=== PATIENT | female | born 1965 | race Caucasian/White ===

== ENCOUNTER 2018-12-22 17:21 | Emergency (ER) | payer BC, OTHER ==
[2018-12-22 17:26] VITALS: BP 163/96; PULSE 67; TEMP 98.1
--- NOTE | 2018-12-22 18:09 | XR ---
EXAMINATION TYPE: XR wrist complete LT DATE OF EXAM: 12/22/2018 COMPARISON: NONE HISTORY: Wrist pain TECHNIQUE: 4 views FINDINGS: I see no fracture nor dislocation. There is 7 mm degenerative cyst in the distal radius. Th ere is some spurring at the first carpometacarpal joint. I see no fracture. IMPRESSION: No acute bony abnormality. Osteoarthritic changes. There is mild soft tissue swelling arlene und the carpus.
[2018-12-22] MEDS ORDERED: KETOROLAC 30 MG/ML 1 ML VIAL IM STA (18:34)
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
[2018-12-22] MEDS ORDERED: Acetaminophen-Codeine 300-30mg TAB PO STA (19:21)
--- NOTE | 2018-12-22 19:39 | ED ---
General Adult HPI - General Chief complaint: Extremity Injury, Upper Stated complaint: LEFT HAND INJURY Source: patient, RN notes reviewed Mode of arrival: ambulatory Limitations: no limitations - History of Present Illness Initial comments: 53-year-old female with a past medical history of hypertension, emphysema presents to the emergency department for a chief complaint of left hand injury. Patient was washing her dog and getting him into the bathtub when he jumped and then her hand backwards. States she has pain in the top part of her hand. States it is painful to move her middle finger. States it is swollen as well. Patient has not tried anything for pain. Patient does states she has been icing it. Denies any other injuries.Patient has no other complaints at this time including shortness of breath, chest pain, abdominal pain, nausea or vomiting, headache, or visual changes. - Related Data Home Medications Medication Instructions Recorded Confirmed FLUoxetine HCL [PROzac] 20 mg PO DAILY 11/23/14 05/05/15 Previous Rx's Medication Instructions Recorded Cephalexin [Keflex] 500 mg PO Q6HR #20 cap 05/05/15 Famotidine [Pepcid] 20 mg PO DAILY PRN #5 tablet 05/05/15 predniSONE 50 mg PO DAILY #3 tab 05/05/15 Allergies Allergy/AdvReac Type Severity Reaction Status Date / Time No Known Allergies Allergy Verified 12/22/18 17:26 Review of Systems ROS Statement: Those systems with pertinent positive or pertinent negative responses have been documented in the HPI. ROS Other: All systems not noted in ROS Statement are negative. Past Medical History Past Medical History: Hypertension Additional Past Medical History / Comment(s): emphsema History of Any Multi-Drug Resistant Organisms: None Reported Past Surgical History: Tubal Ligation Past Psychological History: No Psychological Hx Reported Smoking Status: Current every day smoker Past Alcohol Use History: Occasional Past Drug Use History: None Reported General Exam Limitations: no limitations General appearance: alert, in no apparent distress Head exam: Present: atraumatic, normocephalic, normal inspection Eye exam: Present: normal appearance, PERRL, EOMI. Absent: scleral icterus, conjunctival injection, periorbital swelling ENT exam: Present: normal exam, mucous membranes moist Neck exam: Present: normal inspection, full ROM. Absent: tenderness, meningismus, lymphadenopathy Respiratory exam: Present: normal lung sounds bilaterally. Absent: respiratory distress, wheezes, rales, rhonchi, stridor Cardiovascular Exam: Present: regular rate, normal rhythm, normal heart sounds. Absent: systolic murmur, diastolic murmur, rubs, gallop, clicks Extremities exam: Present: tenderness (Tenderness is noted to the second third and fourth metacarpal heads. No wrist tenderness. No tenderness in the distal fingers.), normal capillary refill (Capillary refill less than 2 seconds, radial pulse 2+ and left upper extremity.), joint swelling (Mild edema and ecchymosis noted to the dorsal aspect of the left second third and fourth metacarpal heads), other (Sensation intact left upper extremity.). Absent: full ROM (Patient has some limited range of motion in the second and fourth digits however flexor and extensor mechanisms are intact.) Course Vital Signs 12/22/18 17:23 Temperature 98.1 F Pulse Rate 67 Respiratory 20 Rate Blood Pressure 163/96 O2 Sat by Pulse 99 Oximetry Procedures - Orthopedic Splinting/Casting Injury #1 Side: left Upper Extremity Injury Location: short arm Upper Extremity Immobilizer: volar splint Medical Decision Making - Medical Decision Making 53-year-old female presents to the emergency department for a chief of left hand injury. Patient's dog fell on her hand and bent it afterwards yesterday. On exam she has tenderness over the second third and fourth metacarpal heads with some edema and ecchymosis. Neurovascular status intact. X-ray reveals a small 4 mm nondisplaced chip fracture of the base of the proximal phalanx of the middle finger. This was splinted. Patient was given Toradol and Tylenol 3. Recommended following up with orthopedics. Recommend returning if she has any worsening symptoms. Discussed rice therapy. Disposition Clinical Impression: Finger fracture, left Disposition: HOME SELF-CARE Condition: Good Instructions (If sedation given, give patient instructions): Finger Fracture (ED) Additional Instructions: Please take Motrin and Tylenol for pain. If pain is severe take Tylenol 3 but do not operate or drive machinery while taking this. Rest ice and elevate the left hand. Keep splint in place and keep it dry. Follow-up with orthopedics on Tuesday. Return here to the emergency department if you have any worsening symptoms. Is patient prescribed a controlled substance at d/c from ED?: No Referrals: Davis Mckeon DO [Doctor of Osteopathic Medicine] - 1-2 days Time of Disposition: 19:38
[2018-12-22 20:09] VITALS: RESP 17
== END 2018-12-22 20:02 | disposition home or self-care (01) ==
LOC: EC 17:21
DX: S62.613A Displaced fracture of proximal phalanx of left middle finger, initial encounter for closed fracture (principal); F17.200 Nicotine dependence, unspecified, uncomplicated; Z79.899 Other long term (current) drug therapy; W54.8XXA Other contact with dog, initial encounter
CPT/HCPCS: 73110; 73130; 99283; 29125; 96372; J1885

== ENCOUNTER 2019-01-09 12:27 | Emergency (ER) | payer BC, OTHER ==
[2019-01-09 12:38] VITALS: BP 115/77; PULSE 66; RESP 16; TEMP 97.8
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
--- NOTE | 2019-01-09 13:51 | XR ---
EXAMINATION TYPE: XR KUB DATE OF EXAM: 01/09/2019 COMPARISON: NONE HISTORY: Pain TECHNIQUE: One view abdominal series FINDINGS: The osseous structures are intact. The bowel gas pattern is nonspecific. Apparent elevation of the r ight hemidiaphragm. Arthropathy and hypertrophic change involving the hip joint correlate for femoral acetabular impingement. Osteitis pubis condensans. Calcification in the right pelvis likely vascular . Retained fecal debris throughout the colon. Subsegmental changes at the left lung base suggestive o f atelectasis. Possible fracture involving the right 12th, 11th and 10th ribs. IMPRESSION: 1. Nonspecific abdomen. Extensive retained fecal debris throughout the colon correlate for constipat ion. 2. Correlate for previous history of trauma to the right rib cage. Fractures involving the 12th, 11th and 10th ribs suspected posteriorly.
[2019-01-09] MEDS ORDERED: MAGNESIUM HYDROXIDE 2,400 MG/10 ML CUP PO STA (14:04)
[2019-01-09] MEDS ORDERED: ACET/COD 300 MG/30 MG STARTER PACK 6 TAB BTL PO STA (15:06)
== END 2019-01-09 15:25 | disposition home or self-care (01) ==
LOC: EC 12:27
DX: K59.00 Constipation, unspecified (principal); S22.49XA Multiple fractures of ribs, unspecified side, initial encounter for closed fracture; S22.20XA Unspecified fracture of sternum, initial encounter for closed fracture; S09.90XA Unspecified injury of head, initial encounter; F17.200 Nicotine dependence, unspecified, uncomplicated; Z79.891 Long term (current) use of opiate analgesic; V89.2XXA Person injured in unspecified motor-vehicle accident, traffic, initial encounter; Y92.410 Unspecified street and highway as the place of occurrence of the external cause
CPT/HCPCS: 74018; 99284

== ENCOUNTER 2020-01-16 17:52 | Emergency (ER) | payer OTHER ==
[2020-01-16 17:58] VITALS: RESP 16
[2020-01-16] MEDS ORDERED: KETOROLAC 15 MG/ML 1 ML VIAL IM STA (18:49)
--- NOTE | 2020-01-16 19:17 | ED ---
General Adult HPI - General Chief complaint: Fall Stated complaint: rt foot injury Time Seen by Provider: 01/16/20 18:16 Source: patient, RN notes reviewed Mode of arrival: wheelchair Limitations: no limitations - History of Present Illness Initial comments: 54-year-old female presents to the emergency room for right foot pain. Patient reports that she was stepping down the last step and accidentally rolled her ankle on the lateral aspect of the right foot. Patient states s she is able to ambulate on his however needs a cane to do so. Patient denies hitting her head or falling. Denies any other injuries.Patient has no other complaints at this time including shortness of breath, chest pain, abdominal pain, nausea or vomiting, headache, or visual changes. - Related Data Home Medications Medication Instructions Recorded Confirmed Docusate [Colace] 100 mg PO DAILY PRN 01/09/19 01/09/19 Ibuprofen [Motrin] 600 mg PO Q6HR PRN 01/09/19 01/09/19 Allergies Allergy/AdvReac Type Severity Reaction Status Date / Time No Known Allergies Allergy Verified 01/16/20 17:56 Review of Systems ROS Statement: Those systems with pertinent positive or pertinent negative responses have been documented in the HPI. ROS Other: All systems not noted in ROS Statement are negative. Past Medical History Past Medical History: Hypertension Additional Past Medical History / Comment(s): emphsema History of Any Multi-Drug Resistant Organisms: None Reported Past Surgical History: Tubal Ligation Past Psychological History: No Psychological Hx Reported Smoking Status: Current every day smoker Past Alcohol Use History: Occasional Past Drug Use History: None Reported General Exam Limitations: no limitations General appearance: alert, in no apparent distress Head exam: Present: atraumatic, normocephalic, normal inspection Eye exam: Present: normal appearance, PERRL, EOMI. Absent: scleral icterus, conjunctival injection, periorbital swelling ENT exam: Present: normal exam, mucous membranes moist Neck exam: Present: normal inspection, full ROM. Absent: tenderness, meningismus, lymphadenopathy Respiratory exam: Present: normal lung sounds bilaterally. Absent: respiratory distress, wheezes, rales, rhonchi, stridor Cardiovascular Exam: Present: regular rate, normal rhythm, normal heart sounds. Absent: systolic murmur, diastolic murmur, rubs, gallop, clicks GI/Abdominal exam: Present: soft, normal bowel sounds. Absent: distended, tenderness, guarding, rebound, rigid Extremities exam: Present: normal capillary refill (Capillary refill less than 2 seconds, DP pulse 2+ in the right lower extremity.), other (Sensation intact right lower extremity). Absent: full ROM (Patient is able to plantar and dorsiflex the right ankle however does have some pain with doing so. Able to move all toes.), tenderness (Tenderness to the navicular of the right foot as well as the lateral malleolus of the right ankle. No fifth metatarsal ten derness. ), pedal edema, joint swelling (Patient does have edema noted to the lateral malleolus and lateral right foot.), calf tenderness Course Vital Signs 01/16/20 01/16/20 17:56 20:17 Temperature 98.7 F 98.5 F Pulse Rate 91 68 Respiratory 16 16 Rate Blood Pressure 154/82 107/79 O2 Sat by Pulse 99 99 Oximetry Procedures - Orthopedic Splinting/Casting Injury #1 Side: right Lower Extremity Injury Location: short leg Lower Extremity Immobilizer: posterior splint Other Orthopedic Equipment: crutches, cane Additional Comments: Neurovascular status intact after splint applied. Medical Decision Making - Medical Decision Making X-ray of the right foot and ankle shows no radiographically apparent fracture or dislocation. There is soft tissue swelling. Follow up as indicated. Patient was splinted in a posterior OCL given concern for soft tissue injury versus occult fracture. Patient does have crutches at home and is currently using a cane. Patient was given referral to orthopedics. Patient will return here for any worsening symptoms. Disposition Clinical Impression: Foot pain Disposition: HOME SELF-CARE Condition: Good Instructions (If sedation given, give patient instructions): Foot Contusion (ED) Additional Instructions: Please take Motrin and Tylenol for pain. Please rest ice and elevate the foot. Follow-up with orthopedics by calling tomorrow for the earliest appointment. Return here to the emergency room should you have any worsening symptoms. Otherwise keep splint dry and in place. Is patient prescribed a controlled substance at d/c from ED?: No Referrals: Christoph Hull MD [STAFF PHYSICIAN] - 1-2 days Time of Disposition: 20:26
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
[2020-01-16 20:17] VITALS: BP 107/79; PULSE 68; TEMP 98.5
== END 2020-01-16 20:30 | disposition home or self-care (01) ==
LOC: EC 17:52
DX: M79.671 Pain in right foot (principal); M79.89 Other specified soft tissue disorders; F17.200 Nicotine dependence, unspecified, uncomplicated
CPT/HCPCS: 73610; 73630; 99283; 29515; 96372; J1885

== ENCOUNTER → 2021-08-20 | Outpatient (CLI) | payer OTHER ==
--- NOTE | 2021-08-20 22:19 | US ---
EXAMINATION TYPE: US abdomen limited DATE OF EXAM: 08/20/2021 COMPARISON: NONE CLINICAL HISTORY: pain. Pain. EXAM MEASUREMENTS: Liver Length: 13.9 cm Gallbladder Wall: 0.17 cm CBD: 0.44 cm Right Kidney: 10.1 x 4.8 x 3.9 cm Pancreas: Very limited due to gas. Liver: Appears coarse. Hyperechoic area seen: 1.7 x 1.8 x 1.1 cm. Gallbladder: Hyperechoic area seen that appears to be attached to the gallbladder wall: 0.2 x 0.3 x 0.2 cm. Area did not appear to be mobile. Evidence for sonographic Kessler's sign: Patient feels pain throughout the RUQ. CBD: Portions seen appear wnl Right Kidney: No hydronephrosis or masses seen. Limited due to gas. Visualized portion of pancreas shows no worrisome mass or ductal dilatation. Portions are obscured by overlying bowel gas. IVC is seen near the hepatic dome. There is overall heterogeneously hyperechoic suggesting mild diffuse fatty infiltration. Within the liver there is a 1.7 x 1.1 x 1.8 cm hypoechoi c peripheral lesion left hepatic lobe favoring small hemangioma. No intrahepatic ductal dilatation is seen. Gallbladder seen with incidental 2 mm nonshadowing nonmobile polyp. No shadowing mobile gallst ones. No abnormal wall thickening or pericholecystic fluid. No right-sided hydronephrosis. IMPRESSION: No shadowing mobile gallstones or ultrasound evidence for acute cholecystitis. A 1.8 cm h yperechoic liver lesion favors a benign hemangioma.
== END | disposition home or self-care (01) ==
LOC: RADUSWWP 18:15
PROVIDERS: ATTEND Family Medicine
DX: R10.13 Epigastric pain (principal)
CPT/HCPCS: 76705

== ENCOUNTER → 2022-01-16 | Outpatient (CLI) | payer OTHER ==
--- NOTE | 2022-01-17 10:20 | MR ---
EXAMINATION TYPE: MR abdomen wo/w con DATE OF EXAM: 01/16/2022 COMPARISON: Ultrasound abdomen limited August 20, 2021 HISTORY: LIVER DISEASE, UNSPECIFIED. Recent abnormal ultrasound. CONTRAST: Standard multiplanar, multisequence MRI departmental protocol images were obtained without contrast a nd with 5 mL intravenous Gadavist gadolinium contrast. Imaging performed of the abdomen focusing on the liver. FINDINGS: The exam is suboptimal as patient has difficulty holding breath. Liver: Liver size remains normal. Gallbladder somewhat contracted in appearance. Hyperechoic area on ultrasound not definitively seen on MRI but likely corresponds to focal fatty infiltration near the i nterlobar fissure anterior left hepatic lobe axial image 45 on in and out of phase imaging. No concer edmund solid or cystic intrahepatic mass is present. No biliary dilatation is noted. Other: Patient has little intra-abdominal fat. Spleen, pancreas, both adrenal glands appear within no rmal limits. No concerning renal mass or hydronephrosis seen bilaterally. No suspicious bowel dilatat ion. No AAA. Osseous structures are intact. IMPRESSION: No concerning focal intrahepatic masses. Area of concern in the liver on recent ultrasoun d favors focal fatty infiltration with volume averaging from the adjacent intralobar fissure on ultra sound making it appear more prominent.
== END | disposition home or self-care (01) ==
LOC: RADMRIMAIN 11:40
PROVIDERS: ATTEND Physician Assistant Medical
DX: K76.0 Fatty (change of) liver, not elsewhere classified (principal)
CPT/HCPCS: 74183; A9585

== ENCOUNTER 2022-03-11 11:59 | Inpatient (IN) | payer MEDICAID, OTHER ==
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
[2022-03-11] MEDS ORDERED: cloNIDine HCL 0.2 MG TAB PO STA (12:32)
[2022-03-11 13:03] LABS: Amphetamine Screen,Urine Not Detected (NotDetected); Barbiturate Screen,Urine Not Detected (NotDetected); Benzodiazepines Screen,Urine Not Detected (NotDetected); Cocaine Screen,Urine Not Detected (NotDetected); Methadone Screen, Urine Not Detected (NotDetected); Opiate Screen,Urine Not Detected (NotDetected); Oxycodone Screen, Urine Not Detected (NotDetected); Phencyclidine Screen,Urine Not Detected (NotDetected); Tricyclic Antidepressant,Urine Not Detected (NotDetected); Urn Cannabinoid Scrn Not Detected (NotDetected)
--- NOTE | 2022-03-11 18:53 | ED ---
Medical Decision Making - Medical Decision Making Patient was evaluated by the psychiatric service and will be admitted for inpatient evaluation treatment of acute psychosis I did fill out a clinical certification. - Lab Data Lab Results 03/11/22 Range/Units 12:40 Urine Opiates Screen Not Detected (NotDetected) Ur Oxycodone Screen Not Detected (NotDetected) Urine Methadone Screen Not Detected (NotDetected) Ur Propoxyphene Screen Not Detected (NotDetected) Ur Barbiturates Screen Not Detected (NotDetected) U Tricyclic Antidepress Not Detected (NotDetected) Ur Phencyclidine Scrn Not Detected (NotDetected) Ur Amphetamines Screen Not Detected (NotDetected) U Methamphetamines Scrn Not Detected (NotDetected) U Benzodiazepines Scrn Not Detected (NotDetected) Urine Cocaine Screen Not Detected (NotDetected) U Marijuana (THC) Screen Not Detected (NotDetected) Disposition Clinical Impression: Adjustment reaction of adult life, Acute psychosis Disposition: TRANSFER TO PSYCH HOSP/UNIT Condition: Stable Additional Instructions: Please return to the Emergency Department if symptoms worsen or any other concerns. Referrals: Kwaku Hebert MD [Primary Care Provider] - 1-2 days Decision Date: 03/11/22 Decision Time: 18:15
[2022-03-11] MEDS ORDERED: NICOTINE 21MG/24HR PATCH TRANSDERM STA (21:05)
[2022-03-11] MEDS ORDERED: HALOPERIDOL LACTATE 5 MG/ML 1 ML VIAL IM PRN (21:24)
[2022-03-11] MEDS ORDERED: MAG HYDROX/AL HYDROX/SIMETH 355 ML BOTTLE PO PRN (21:24)
[2022-03-11] MEDS ORDERED: MAGNESIUM HYDROXIDE 2,400 MG/10 ML CUP PO PRN (21:24)
[2022-03-11] MEDS ORDERED: ACETAMINOPHEN TAB 325 MG TAB PO PRN (21:24)
[2022-03-11] MEDS ORDERED: LORazepam 2 MG/ML INJ IM PRN (21:27)
[2022-03-11] MEDS ORDERED: haloperidoL 5 MG TAB PO PRN (21:30)
[2022-03-11] MEDS ORDERED: LORazepam 1 MG TAB PO SCH (22:00)
[2022-03-11] MEDS ORDERED: haloperidoL 5 MG TAB PO SCH (22:00)
[2022-03-11] MEDS: LORazepam 1 MG TAB PO PRN (22:45)
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
[2022-03-12 07:54] LABS: Basophils % (A) 1 %; Eosinophils # (A) 0.1 k/uL (0-0.7); Eosinophils % (A) 3 %; HCT 39.5 % (34.0-46.0); HGB 12.9 gm/dL (11.4-16.0); Lymphocytes # (A) 1.6 k/uL (1.0-4.8); Lymphocytes % (A) 32 %; MCH 30.8 pg (25.0-35.0); MCHC 32.8 g/dL (31.0-37.0); MCV 93.9 fL (80.0-100.0); Mean Platelet Volume 7.1; Monocytes # (A) 0.3 k/uL (0-1.0); Monocytes % (A) 7 %; Neutrophils # (A) 2.9 k/uL (1.3-7.7); Neutrophils % (A) 57 %; Platelet Count 559 k/uL (150-450); RDW 12.5 % (11.5-15.5); WBC 5.1 k/uL (3.8-10.6)
[2022-03-12 08:22] LABS: ALT 19 U/L (4-34); AST 36 U/L (14-36); African American GFR (CKD) 82 (>60 ml/min/1.73 sqM); Albumin 4.3 g/dL (3.5-5.0); Alkaline Phosphatase 52 U/L (38-126); Anion Gap 8 mmol/L; Blood Urea Nitrogen 12 mg/dL (7-17); Calcium 9.3 mg/dL (8.4-10.2); Carbon Dioxide 25 mmol/L (22-30); Chloride 101 mmol/L (98-107); Glucose 145 mg/dL (74-99); Non-African American GFR(CKD) 71 (>60 ml/min/1.73 sqM); Potassium 4.6 mmol/L (3.5-5.1); Sodium 134 mmol/L (137-145); Total Bilirubin 0.5 mg/dL (0.2-1.3); Total Protein 7.2 g/dL (6.3-8.2)
[2022-03-12] MEDS: NICOTINE 21MG/24HR PATCH TRANSDERM SCH (08:59)
[2022-03-12] MEDS: LOSARTAN 50 MG TAB PO SCH (08:59)
[2022-03-12] MEDS ORDERED: FLUoxetine HCL 20 MG CAP PO STA (10:19)
[2022-03-12] MEDS: LORazepam 1 MG TAB PO PRN (10:32)
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
[2022-03-12 14:07] LABS: Chol/HDL Ratio 2.87 Ratio; LDL Cholesterol,Calculated 130.3 mg/dL (0.0-131.0)
[2022-03-12 14:12] VITALS: BMI 18.8
[2022-03-12] MEDS: NICOTINE GUM (POLACRILEX) 2 MG GUM BUCCAL PRN ×2 (15:02→20:42)
[2022-03-12] MEDS: cloNIDine HCL 0.1 MG TAB PO SCH (20:41)
[2022-03-12] MEDS: QUEtiapine 25 MG TAB PO SCH (20:41)
[2022-03-13] MEDS: LOSARTAN 50 MG TAB PO SCH (08:12)
[2022-03-13] MEDS: NICOTINE 21MG/24HR PATCH TRANSDERM SCH (08:12)
[2022-03-13] MEDS: cloNIDine HCL 0.1 MG TAB PO SCH ×2 (08:12→20:33)
[2022-03-13] MEDS: FLUoxetine HCL 10 MG CAP PO SCH (08:12)
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
[2022-03-13] MEDS: ARIPiprazole 10 MG TAB PO SCH (14:45)
[2022-03-13] MEDS: NICOTINE GUM (POLACRILEX) 2 MG GUM BUCCAL PRN ×3 (14:46→20:34)
[2022-03-13] MEDS: QUEtiapine 25 MG TAB PO SCH (20:33)
[2022-03-14] MEDS: NICOTINE 21MG/24HR PATCH TRANSDERM SCH (08:39)
[2022-03-14] MEDS: cloNIDine HCL 0.1 MG TAB PO SCH (08:40)
[2022-03-14] MEDS: ARIPiprazole 10 MG TAB PO SCH (08:40)
[2022-03-14] MEDS: FLUoxetine HCL 10 MG CAP PO SCH (08:40)
[2022-03-14] MEDS: LOSARTAN 50 MG TAB PO SCH (08:40)
[2022-03-14] MEDS: NICOTINE GUM (POLACRILEX) 2 MG GUM BUCCAL PRN ×2 (09:26→12:40)
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
[2022-03-14] MEDS: QUEtiapine 25 MG TAB PO SCH (20:54)
[2022-03-15] MEDS: NICOTINE 21MG/24HR PATCH TRANSDERM SCH (08:13)
[2022-03-15] MEDS: FLUoxetine HCL 10 MG CAP PO SCH (08:13)
[2022-03-15] MEDS: LOSARTAN 50 MG TAB PO SCH (08:13)
[2022-03-15] MEDS: NICOTINE GUM (POLACRILEX) 2 MG GUM BUCCAL PRN ×2 (08:13→15:50)
[2022-03-15] MEDS: LORazepam 1 MG TAB PO PRN (08:14)
[2022-03-15] MEDS ORDERED: ARIPiprazole 15 MG TAB PO SCH (09:00)
--- NOTE | 2022-03-15 11:47 | P.PN ---
Progress Note - Text Progress Note Date: 03/15/22 Interval History: Patient was seen bedside this morning. The patient reports a strong desire to return home to her family. She states this provider that she "lied to everyone." She states that her family does not control her finances and that she loves them and would like to be home with them for the holidays. She is vehemently denying any suicidal or homicidal ideation, intention, and/or plan. When asked why she "lied," patient reports she was not sleeping well and was not getting along with her boyfriend but that she misses them too much now and would like to return home to them and the dogs. She is not reporting any auditory or visual hallucinations. She denies any paranoia. She reports that she feels safe. She denies any medical issues or concerns. She has been adherent with her medication and reports "grogginess" as a side effect. Mental Status Exam: General Appearance: Patient appears to be older than stated age is alert, directable, and attempts to cooperate. Patient appears to have fair hygiene and grooming. Behavior: Patient displays less psychomotor agitation Speech: Patient's speech is less loud but continues to be hyperverbal Mood/Affect: Patient reports their mood is depressed, affect is mood incongruent. Patient presents as euthymic. Suicidality/Homicidality: Patient vehemently denies any suicidal or homicidal ideation today. Perceptions: Patient denies any visual hallucinations and denies any auditory hallucinations Though content/process: There is no evidence of any delusional thought content and thought process is linear and goal-directed. Memory and concentration: AOX3, grossly intact for the purposes of this session. Can spell "WORLD" backwards Judgment and insight: Fair Vital Signs Temp 97.9 F 03/15/22 06:51 Pulse 70 03/15/22 08:11 Resp 16 03/15/22 06:51 BP 121/78 03/15/22 08:11 Pulse Ox 94 L 03/13/22 06:00 FiO2 Assessment Bipolar disorder, most recent episode depressed with mixed features Acute stress disorder vs PTSD Alcohol use disorder, in partial remission Tobacco use disorder History of closed head injury Plan: -Patient is admitted under voluntary status to MHU for stabilization of psychiatric symptoms and safety. Patient signed adult voluntary form and medication consent and is placed in patient's chart. -Medications: - Increase Abilify to 20 mg daily for bipolar disorder/mood lability. - Continue Prozac 30 mg by mouth daily for depression/anxiety/PTSD -Discontinue Seroquel due to dual antipsychotic therapy. -Ativan and Haldol PRN for agitation/aggression -Patient was counselled on substance abuse and desired to cut back on use -Patient was informed of the risks, benefits and side effects of the medication and patient verbally consented to taking the medications. Patient signed med consent form and was placed in chart. -Internal Medicine consult to perform medical evaluation and physical. -NRT - nicotine patch -SW on board for discharge planning. Encourage patient to participate in groups to work on coping skills. Her boyfriend and daughter must be notified of homicidal ideation prior to discharge if patient continues to endorse it.
[2022-03-16 06:56] VITALS: BP 137/54; PULSE 80; RESP 17; TEMP 98.1
[2022-03-16] MEDS: NICOTINE 21MG/24HR PATCH TRANSDERM SCH (09:18)
[2022-03-16] MEDS: LOSARTAN 50 MG TAB PO SCH (09:19)
[2022-03-16] MEDS: FLUoxetine HCL 10 MG CAP PO SCH (09:19)
[2022-03-16] MEDS: NICOTINE GUM (POLACRILEX) 2 MG GUM BUCCAL PRN (09:23)
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
== END 2022-03-16 15:09 | disposition home or self-care (01) | DRG 885 ==
LOC: EC 11:59 → 3MHU 21:23
PROVIDERS: ADMIT Psychiatry & Neurology Psychiatry; ATTEND Psychiatry & Neurology Psychiatry
DX: F31.64 Bipolar disorder, current episode mixed, severe, with psychotic features (principal); R45.851 Suicidal ideations; R45.850 Homicidal ideations; F10.21 Alcohol dependence, in remission; Z20.822 Contact with and (suspected) exposure to COVID-19; F43.10 Post-traumatic stress disorder, unspecified; G47.9 Sleep disorder, unspecified; I10 Essential (primary) hypertension; G47.00 Insomnia, unspecified; F17.210 Nicotine dependence, cigarettes, uncomplicated; Z71.6 Tobacco abuse counseling; Z79.899 Other long term (current) drug therapy; Z87.820 Personal history of traumatic brain injury; Z56.0 Unemployment, unspecified; Z91.411 Personal history of adult psychological abuse; Z91.410 Personal history of adult physical and sexual abuse; Z65.3 Problems related to other legal circumstances; Z63.72 Alcoholism and drug addiction in family; Z81.1 Family history of alcohol abuse and dependence
CPT/HCPCS: 80053; 80061; 80306; 82075; 83036; 84443; 85025; 87635; 99285

== ENCOUNTER → 2022-09-13 | Outpatient (CLI) | payer OTHER ==
[2022-09-13 17:34] LABS: HCT 43.7 % (37.2-46.3); HGB 14.1 d/dL (12.0-15.0); MCH 30.4 pg (27.0-32.0); MCHC 32.3 d/dL (32.0-37.0); MCV 94.2 FL (80.0-97.0); Mean Platelet Volume 8.8 FL (9.5-12.2); NRBC Per 100 WBC 0 X 10*3/uL (0.00-0.01); Platelet Count 481 X 10*3/uL (140-440); RBC 4.64 X 10*6/uL (4.10-5.20); RDW 13.5 % (11.5-14.5); WBC 8.06 X 10*3/uL (4.50-10.00)
[2022-09-14 04:33] LABS: Blood Urea Nitrogen 9.8 mg/dL (9.0-27.0); Carbon Dioxide 22.6 mmol/L (21.6-31.8); Chloride 99 mmol/L (96-109); Potassium 4.9 mmol/L (3.5-5.5); Sodium 138 mmol/L (135-145)
== END | disposition home or self-care (01) ==
LOC: LABPAT 10:13
PROVIDERS: ATTEND Internal Medicine
DX: Z01.812 Encounter for preprocedural laboratory examination (principal); I20.0 Unstable angina
CPT/HCPCS: 36415; 80051; 82565; 84520; 85027

== ENCOUNTER 2022-09-15 09:09 | Day surgery (SDC) | payer OTHER ==
[2022-09-13 14:31] VITALS: BMI 20.5
[~2022-09-15 09:09] MED LIST: ALPRAZolam 0.25 MG TAB PO PRN; ALPRAZolam 0.5 MG TAB PO PRN; ASPIRIN 325 MG TAB PO STA; ATORVASTATIN 80 MG TAB PO STA; HEPARIN SODIUM,PORCINE 10,000 UNIT in SODIUM CHLORIDE 0.9% 1,000 ML IRRIGATION PRN; HEPARIN SODIUM,PORCINE 2,500 UNIT in SODIUM CHLORIDE 0.9% 250 ML IRRIGATION PRN; NITROGLYCERIN SL TABS 0.4 MG TAB SUBLINGUAL PRN; SODIUM CHLORIDE 0.9% 1,000 ML in EMPTY BAG 1 BAG IV SCH
[2022-09-15 09:41] VITALS: RESP 18; TEMP 98.7
[2022-09-15] MEDS ORDERED: fentaNYL (PF) 50 MCG/ML 2 ML AMP ONE (10:25)
[2022-09-15] MEDS ORDERED: HEPARIN SODIUM 1,000 UN/ML (10ML VL) ONE (10:25)
[2022-09-15] MEDS ORDERED: fentaNYL (PF) 50 MCG/ML 2 ML AMP IV ONE (10:36)
[2022-09-15] MEDS ORDERED: MIDAZOLAM 2 MG/2 ML VIAL IV ONE (10:36)
[2022-09-15] MEDS ORDERED: LIDOCAINE 1% INJ 10MG/ML (5 ML VIAL-PF) SQ ONE (10:40)
[2022-09-15] MEDS ORDERED: VERAPAMIL SYRINGE (5 MG/10 ML) INTRAARTER ONE (10:42)
[2022-09-15] MEDS ORDERED: HEPARIN SODIUM 1,000 UN/ML (10ML VL) IV ONE ×2 (10:44→11:00)
[2022-09-15] MEDS ORDERED: CLOPIDOGREL 75 MG TAB ONE (10:57)
[2022-09-15] MEDS ORDERED: CLOPIDOGREL 75 MG TAB PO ONE (10:59)
[2022-09-15] MEDS: NITROGLYCERIN 1000MCG/10ML SYRINGE IV ONE ×2 (11:05→11:19)
[2022-09-15] MEDS ORDERED: IOPAMIDOL-370 100ML BTL INJ ONE (11:28)
[2022-09-15] MEDS ORDERED: IBUPROFEN 800 MG TAB PO PRN (12:21)
[2022-09-15] MEDS ORDERED: ATROPINE SULFATE 0.1 MG/ML 10ML SYRINGE IV PRN (12:23)
[2022-09-15] MEDS ORDERED: ZOLPIDEM 5 MG TAB PO PRN (12:23)
[2022-09-15] MEDS ORDERED: MAG HYDROX/AL HYDROX/SIMETH 30 ML CUP PO PRN (12:23)
[2022-09-15] MEDS ORDERED: RX INFO: IV CONTRAST WAS GIVEN 1 EACH MISC MISCELLANE PRN (12:23)
[2022-09-15] MEDS ORDERED: SODIUM CHLORIDE 0.9% 1,000 ML IV ONE (12:30)
--- NOTE | 2022-09-15 13:01 | P.PRCINT ---
Percutaneous Coronary Int. - Percutaneous Coronary Intervention Percutaneous Coronary Intervention: PROCEDURES PERFORMED: Left heart catheterization, bilateral coronary angiography, ultrasound guided arterial access, iFR RCA, IVUS RCA, PCI RCA 4.0 x 23mm Xience ASHLEY, post dilated with a 5.0 NC balloon INDICATION: Unstable angina over the last 1 month CONSENT:I have discussed the risks, benefits and alternative therapies for the above-mentioned procedure and for both sedation/analgesia as well as necessary blood product administration, if indicated, as they pertain to this patient. The patient has indicated understanding and acceptance of the risks and procedures discussed. PROCEDURE: After the risks, benefits and alternatives of the above mentioned procedure explained in detail with the patient, informed consent was obtained. Patient was taken to the catheterization lab and prepped and draped in usual fashion. Ultrasound guidance was used to assess for arterial access. 1% lidocaine was used to anesthetize the right radial artery. A 6-Cymraes sheath was placed in the right radial artery using modified Seldinger technique and ultrasound guidance. Left coronary angiography was performed with a 5-Cymraes JL 3.5 catheter and right coronary angiography was performed with a 5-Cymraes JR5 catheter in various views. A 5-Cymraes FR5 catheter was inserted into the left ventricle and pressure measurements were obtained. The decision was made to perform iFR of the RCA. Heparin was given for a CT greater than 250. A 6-Cymraes AL 0.75 guide was used to engage the RCA. A 0.014 pressure wire was advanced in the proximal RCA and normalized. It was then advanced 1 Ana distal to the mid RCA lesion. iFR was abnormal at 0.76. Therefore the decision was made to perform PCI. Balloon angioplasty was performed with a 4.0 x 12 mm balloon. Intravascular ultrasound showed reference vessel 4.5-5.0 mm. A 4.0 x 23 mm Xience ASHLEY was placed in the mid RCA. The stent was postdilated with a 5.0 x 12 mm noncompliant balloon. Final angiograms were performed as well as repeat intravascular ultrasound which showed excellent stent apposition. Preintervention there was 70% stenosis with RAVINDER 3 flow and postintervention there was 0% stenosis with RAVINDER 3 flow. The right radial sheath was removed and a TR band was placed with hemostasis achieved. The patient tolerated the procedure well. Patient was transported back to the post catheterization holding area in stable condition. Conscious Sedation: Patient was monitored under the direct supervision of myself for conscious sedation using Versed and fentanyl for a total duration of 43 minutes HEMODYNAMICS: Aorta: 138/76 LV: 134/5, LVEDP 15 SELECTIVE CORONARY ARTERIOGRAPHY: LEFT MAIN: The left main is a large caliber vessel which bifurcates into the LAD and circumflex. There is no significant stenosis. LEFT ANTERIOR DESCENDING CORONARY ARTERY: LAD is a large caliber vessel which wraps around to the apex. There are mild luminal irregularities of the LAD. LEFT CIRCUMFLEX CORONARY ARTERY: Left circumflex is a moderate caliber vessel. There is a mid circumflex 30-40% stenosis. RIGHT CORONARY ARTERY: The right coronary artery is a large caliber vessel which gives off a PDA and PLV branch and is the dominant vessel. There is a mid RCA 70% stenosis and otherwise mild luminal irregularities. FINAL IMPRESSION: 1. CAD as described above including 30-40% mid circumflex and 70% mid RCA stenosis. 2. Abnormal iFR RCA 3. S/p PCI RCA 4.0 x 23mm Xience ASHLEY 4. Mildly elevated left sided filling pressures PLAN: 1. Aggressive risk factor modification per most recent ACC/AHA guidelines. 2. Continue dual antiplatelet with aspirin and Plavix for 12 months. 3. Tobacco cessation
[2022-09-15 15:01] VITALS: BP 150/81; PULSE 51
[2022-09-15] MEDS ORDERED: METOPROLOL TARTRATE 25 MG TAB PO SCH (21:00)
[2022-09-15] MEDS ORDERED: ATORVASTATIN 80 MG TAB PO SCH (21:00)
[2022-09-16] MEDS ORDERED: NON FORMULARY DRUG (Losartan Potassium [Cozaar] 100 MG Tablet) PO SCH (09:00)
[2022-09-16] MEDS ORDERED: FLUoxetine HCL 10 MG CAP PO SCH (09:00)
[2022-09-16] MEDS ORDERED: CLOPIDOGREL 75 MG TAB PO SCH (09:00)
[2022-09-16] MEDS ORDERED: ASPIRIN 81 MG PO SCH (09:00)
== END 2022-09-15 15:54 | disposition home or self-care (01) ==
LOC: CATHCVL 09:09
PROVIDERS: ATTEND Internal Medicine
DX: I20.0 Unstable angina (principal); I77.1 Stricture of artery; Z79.899 Other long term (current) drug therapy
CPT/HCPCS: 92978; 93458; 93799; C9600; C1887; C1769 ×2; C1894; C1725 ×2; C1753; C1874; J2250; J2001; J3010; J1644; Q9967

== ENCOUNTER → 2022-12-07 | Outpatient (CLI) | payer OTHER ==
--- NOTE | 2022-12-08 16:13 | MM ---
Reason for Exam: Screening (asymptomatic). Last mammogram was performed 9 year(s) and 4 month(s) ago. Patient History: Menarche at age 10. First Full-Term at age 21. Postmenopausal. Niece had breast cancer under age 50. Risk Values: Kristy 5 year model risk: 1.2%. NCI Lifetime model risk: 6.7%. Prior Study Comparison: 11/22/1996 Bilateral Special View Mammogram, [facility]. 04/06/2010 Bilateral Screening Mammogram, [facility]. 08/06/2013 Bilateral Screening Mammogram, [facility]. Tissue Density: The breast tissue is heterogeneously dense. This may lower the sensitivity of mammography. Findings: Analyzed By CAD. Pattern appears symmetrical and stable. 2 round calcifications are within the left breast. No significant interval changes are evident. No suspicious groups of microcalcifications, spiculated or lobular masses, architectural distortion or other secondary signs of malignancy are mammographically apparent. Overall Assessment: Benign, BI-RAD 2 Management: Screening Mammogram of both breasts in 1 year. A negative mammogram report should not preclude additional follow up of suspicious palpable abnormalities. Patient should continue monthly self breast exam. A clinical breast exam by your physician is recommended on an annual basis and results should be correlated with mammographic findings. Electronically signed and approved by: Wallace Denis D.O. Radiologis
== END | disposition home or self-care (01) ==
LOC: RADMAMWWP 16:10
PROVIDERS: ATTEND Family Medicine
DX: Z12.31 Encounter for screening mammogram for malignant neoplasm of breast (principal); Z78.0 Asymptomatic menopausal state; Z80.3 Family history of malignant neoplasm of breast
CPT/HCPCS: 77067

== ENCOUNTER 2023-11-14 18:26 | Emergency (ER) | payer OTHER ==
--- NOTE | 2023-12-13 11:18 | XR ---
Patient: Kassy Jacobson Ordering Physician: Unknown, Unknown ID: [id number] Phone, Pager: Phone: N/A Pager: N/A : [phone] Age/Gender: 58Y, F Primary Location: N/A Procedure: XR FOOT LEFT COMPLETE S tudy Date: 11/14/2023 8:27:02 PM EXAMINATION TYPE: XR foot complete LT DATE OF EXAM: 11/14/2023 8:47 PM CLINICAL INDICATION: Wound fourth fifth digits COMPARISON: None TECHNIQUE: XR foot complete LT examined in the AP, oblique, and lateral projections. FINDINGS: Soft tissue swelling present. No evidence of any acute osseous pathology. Multifocal degeneration lita nges throughout the joints of the foot with osteophyte formation and joint space narrowing. Lateral a ngulation of the first digit metatarsophalangeal joint. IMPRESSION: 1. Soft tissue swelling without soft tissue wound definitively visualized. No evidence for osseous e rosion. 2. Hallux valgus. 3. No evidence of acute fracture. 4. Mild degeneration changes throughout the joints of the foot.
== END 2023-11-14 22:06 | disposition home or self-care (01) ==
LOC: EC 18:26
DX: L03.116 Cellulitis of left lower limb (principal)
CPT/HCPCS: 99282

== ENCOUNTER → 2024-02-02 | Outpatient (CLI) | payer OTHER ==
--- NOTE | 2024-02-02 12:17 | CTL ---
EXAMINATION TYPE: CT Low Dose Lung DATE OF EXAM ORDERED: 02/02/2024 COMPARISON: None CLINICAL INDICATION: Female, 58 years old with history of Z12.2 ENCNTR SCREEN FOR MALIGNANT NEOPLASM OF RESP; PHH, Personal hx nicotine dependence 1/2 ppd x 42 years current smoker hx COPD, Lung cancer screening, History of Smoking/tobacco use. TECHNIQUE: Low dose computed tomography scan was performed through the chest at 1 mm thick sections a nd reconstructed images in multiple planes at 1 mm and [address] DLP: 48.[address] CTDI: 1.3 mGy Automated exposure control for dose reduction was used. CT DIAGNOSTIC QUALITY: Satisfactory FINDINGS: EXAMINATION TYPE: CT Low Dose Lung DATE OF EXAM ORDERED: 02/02/2024 HISTORY: Lung cancer screening CT DLP: 48.[address] CTDI: 1.3 mGy Automated exposure control for dose reduction was used. Comparison: None TECHNIQUE: Low dose computed tomography scan was performed through the chest at 1 mm thick sections a nd reconstructed images in multiple planes at 1 mm and [address] DIAGNOSTIC QUALITY: Satisfactory FINDINGS: There is a 6.6 mm nodule in the subpleural parenchymal right upper lobe anteriorly. The lungs are clear and there is no abnormal airspace consolidation or interstitial density. There is no mediastinal, hilar or axillary adenopathy. There is no pleural effusion, pleural thickening or pneumothorax. No focal osseous lesions are seen. Limited scans the upper abdomen reveals no gross abnormality IMPRESSION: 1. Lung rads Category 3, likely benign nodule in the anterior right upper lobe. Follow-up CT thorax i s recommended in 4-6 months to confirm stability. 2. No acute cardiopulmonary disease. [facility], , 02/02/2024 12:15 PM
== END | disposition home or self-care (01) ==
LOC: RADCTMAIN 11:16
PROVIDERS: ATTEND Family Medicine
DX: Z12.2 Encounter for screening for malignant neoplasm of respiratory organs (principal); R91.1 Solitary pulmonary nodule; F17.210 Nicotine dependence, cigarettes, uncomplicated; Z87.09 Personal history of other diseases of the respiratory system
CPT/HCPCS: 71271

== ENCOUNTER → 2024-07-23 | Outpatient (CLI) | payer OTHER ==
--- NOTE | 2024-07-23 14:06 | CT ---
EXAMINATION TYPE: CT chest wo con CT DLP: 150.2 mGycm, Automated exposure control for dose reduction was used. DATE OF EXAM: 07/23/2024 1:58 PM COMPARISON: CT low-dose lung 02/02/2024 CLINICAL INDICATION:Female, 59 years old with history of R91.1 SOLITARY PULMONARY NODULE; PHH, SUSPEC JERZY NODULES TECHNIQUE: Multiple axial images were obtained through the chest without IV contrast. Lack of IV or o ral contrast limits evaluation of solid and hollow organ viscera. . Coronal and sagittal reformats re viewed. FINDINGS: LUNGS/ PLEURA: No pleural effusion, pneumothorax, focal consolidation. Mild centrilobular emphysemato us changes. Stable anterior right upper lobe inferior 7 mm pulmonary nodule density (series 4, image 40). Stable right upper lobe 1.8 mm pulmonary nodule (series 4, image 35). Stable 3 mm nodule along the right minor fissure within the right lower lobe (series 4, and 40). No new or enlarging pulmonary nodules. Minimal biapical pleural parenchymal scarring. AIRWAY: Patent and unremarkable.. HEART: Size within normal limits. . No pericardial effusion. Mild to moderate coronary artery calcifi cations present. Possible stent versus severe calcification within the RCA. MEDIASTINUM: No gross evidence of adenopathy. VASCULATURE: No aortic aneurysm. Mild atherosclerotic calcification of the aorta and its branches. MUSCULOSKELETAL: Mild disc degeneration changes are present throughout the thoracolumbar spine. No ac jolly osseous abnormality. Remote healed multiple right-sided rib fractures. SOFT TISSUES/LYMPH NODES: Unremarkable. LOWER NECK: No significant findings. UPPER ABDOMEN: No significant findings. IMPRESSION: 1. Few stable pulmonary nodules measuring up to 7 mm. No new or enlarging pulmonary nodules. Castroin g to Fleischner criteria, recommend follow-up CT chest in one year. 2. Mild emphysematous changes. [facility], , 07/23/2024 2:04 PM
== END | disposition home or self-care (01) ==
LOC: RADCTMAIN 12:56
PROVIDERS: ATTEND Family Medicine
DX: J43.9 Emphysema, unspecified (principal); R91.8 Other nonspecific abnormal finding of lung field
CPT/HCPCS: 71250